=== PATIENT | male | born 1950 | race Caucasian/White ===

== ENCOUNTER 2022-12-09 22:53 | Observation (INO) | payer MEDICARE ==
[2022-12-09] MEDS ORDERED: NITROGLYCERIN SL TABS 0.4 MG TAB SUBLINGUAL STA (23:09)
[2022-12-09] MEDS ORDERED: ASPIRIN 81 MG PO STA (23:09)
[2022-12-09] MEDS ORDERED: NITROGLYCERIN OINT 1 INCH/GM PACKET TOPICAL STA (23:09)
--- NOTE | 2022-12-09 23:18 | ED ---
Chest Pain HPI - General Chief Complaint: Chest Pain Stated Complaint: abd pain Time Seen by Provider: 12/09/22 23:08 Source: patient Mode of arrival: ambulatory Limitations: no limitations - History of Present Illness Initial Comments: This patient is 72-year-old man who presents 7 evaluation for a constellation of symptoms that had come on over the course of the day. The patient noticed initially that he was having some nausea early in the morning. There was also initially substernal discomfort. The patient states that later probably early evening the pain seemed to shift locations to the left of the anterior chest. The patient also complains of having increasing generalized fatigue. The patient had also mentioned to his that he was feeling sweaty at one point. MD Complaint: chest pain -: hour(s) Onset: during rest Pain Location: substernal, left chest Pain Radiation: none Severity: moderate Quality: dull Consistency: constant Improves With: nothing Anginal Symptoms: nausea Treatments Prior to Arrival: other (Antacid) - Related Data Allergies Allergy/AdvReac Type Severity Reaction Status Date / Time No Known Allergies Allergy Verified 12/09/22 23:04 Review of Systems ROS Statement: Those systems with pertinent positive or pertinent negative responses have been documented in the HPI. ROS Other: All systems not noted in ROS Statement are negative. Constitutional: Denies: fever, chills Respiratory: Reports: dyspnea. Denies: cough Cardiovascular: Reports: chest pain. Denies: palpitations Endocrine: Reports: fatigue Gastrointestinal: Reports: nausea. Denies: abdominal pain, vomiting, diarrhea Genitourinary: Denies: dysuria, hematuria Musculoskeletal: Denies: back pain Skin: Denies: rash Neurological: Denies: headache, weakness EKG Findings - EKG Results: EKG: interpreted by HOLLI HOOPER, sinus rhythm (rate 80 bpm), normal axis, normal QRS, normal ST/T - OR, Pacemaker, Normal: Normal tracing: normal tracing Past Medical History Additional Past Medical History / Comment(s): rt shoulder rotator cuff injury History of Any Multi-Drug Resistant Organisms: None Reported Additional Past Surgical History / Comment(s): rt shoulder Past Psychological History: No Psychological Hx Reported Smoking Status: Never smoker Past Alcohol Use History: None Reported Past Drug Use History: None Reported General Exam Limitations: no limitations General appearance: alert, in no apparent distress Head exam: Present: atraumatic, normocephalic Eye exam: Present: normal appearance. Absent: scleral icterus, conjunctival injection Neck exam: Present: normal inspection Respiratory exam: Present: normal lung sounds bilaterally. Absent: respiratory distress, wheezes, rales, rhonchi, stridor Cardiovascular Exam: Present: regular rate, normal rhythm, normal heart sounds. Absent: systolic murmur, diastolic murmur, rubs, gallop GI/Abdominal exam: Present: soft. Absent: distended, tenderness, guarding, rebound, rigid, mass Extremities exam: Present: normal inspection, normal capillary refill. Absent: pedal edema, calf tenderness Back exam: Present: normal inspection. Absent: CVA tenderness (R), CVA tenderness (L) Neurological exam: Present: alert Skin exam: Present: warm, dry, intact, normal color. Absent: rash Course Vital Signs 12/09/22 12/09/22 12/10/22 23:01 23:41 00:35 Temperature 98.4 F Pulse Rate 80 78 75 Respiratory 20 18 18 Rate Blood Pressure 166/109 147/103 125/81 O2 Sat by Pulse 97 97 94 L Oximetry 12/10/22 12/10/22 01:11 03:02 Temperature Pulse Rate 70 68 Respiratory 16 16 Rate Blood Pressure 118/71 106/58 O2 Sat by Pulse 92 L 95 Oximetry Chest Pain [facility] Patient is 72-year-old man presenting with chest pain. Also did have some anginal type symptoms over the course of the day. When the patient for serial cardiac enzymes cardiology consultation and telemetry monitoring. Disposition Clinical Impression: Chest pain Disposition: ADMITTED IP TO THIS HOSP Condition: Good Is patient prescribed a controlled substance at d/c from ED?: No
[2022-12-09 23:40] LABS: Basophils % (A) 0 %; Eosinophils # (A) 0.2 k/uL (0-0.7); Eosinophils % (A) 1 %; HCT 41.9 % (39.0-53.0); HGB 14.3 gm/dL (13.0-17.5); Lymphocytes # (A) 0.6 k/uL (1.0-4.8); Lymphocytes % (A) 4 %; MCH 31.8 pg (25.0-35.0); MCV 93.6 fL (80.0-100.0); Mean Platelet Volume 7.5; Monocytes # (A) 0.7 k/uL (0-1.0); Monocytes % (A) 5 %; Neutrophils # (A) 12.5 k/uL (1.3-7.7); Neutrophils % (A) 89 %; Platelet Count 163 k/uL (150-450); RBC 4.48 m/uL (4.30-5.90); RDW 12.7 % (11.5-15.5); WBC 14.1 k/uL (3.8-10.6)
[2022-12-09 23:52] LABS: Albumin 4.4 g/dL (3.5-5.0); Calcium 9.4 mg/dL (8.4-10.2); Magnesium 2.1 mg/dL (1.6-2.3); Potassium 3.7 mmol/L (3.5-5.1); Total Bilirubin 0.9 mg/dL (0.2-1.3); Total Protein 7.1 g/dL (6.3-8.2)
--- NOTE | 2022-12-09 23:52 | XR ---
EXAMINATION TYPE: XR chest 2V DATE OF EXAM: 12/09/2022 11:48 PM COMPARISON: None TECHNIQUE: XR chest 2V Frontal and lateral views of the chest. CLINICAL INDICATION:Male, 72 years old with history of Chest Pain; FINDINGS: Lungs/Pleura: There is no evidence of pleural effusion, focal consolidation, or pneumothorax. Pulmonary vascularity: Unremarkable. Heart/mediastinum: Cardiomediastinal silhouette is unremarkable. Musculoskeletal: No acute osseous pathology. 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 IMPRESSION: No acute cardiopulmonary disease/process.
[2022-12-09 23:56] LABS: INR 0.9 (<1.2); Partial Thromboplastin Time 23.5 sec (22.0-30.0); Prothrombin Time 9.7 sec (9.0-12.0)
[2022-12-10] MEDS ORDERED: NITROGLYCERIN SL TABS 0.4 MG TAB SUBLINGUAL PRN (02:58)
[2022-12-10] MEDS ORDERED: MELATONIN 5 MG TABLET PO STA (04:21)
[2022-12-10] MEDS ORDERED: TEMAZEPAM 15 MG CAP PO STA (04:21)
[2022-12-10] MEDS ORDERED: TEMAZEPAM 7.5 MG CAP PO STA (04:30)
[2022-12-10 07:41] VITALS: RESP 18
--- NOTE | 2022-12-10 08:46 | CONS ---
CONSULTATION CHIEF COMPLAINT: Chest pain. HISTORY OF PRESENT ILLNESS: Tigre is a 72-year-old gentleman with no significant past medical history, who is following quite a bit of physical exertion yesterday, initially developed right infrascapular discomfort that he thought was musculoskeletal. He subsequently felt somewhat uncomfortable, tired and fatigued most of the day and then subsequently has had what he describes as a heartburn-like sensation in the precordial area. It was mild to moderate in intensity. He could not become comfortable doing anything, arrived in the emergency room where he received aspirin and sublingual nitroglycerin following which he became symptom-free and has remained symptom free since. His hemoglobin is normal at 14.3, potassium is 3.7, creatinine is 1. He has had 2 sets of troponins that are both within normal limits. Rest of his lab work is benign and unremarkable. An EKG shows sinus rhythm and is within normal limits. The patient does not have any prior medical history. He is not on any prescription medications. There is no history of coronary artery disease or congestive heart failure. He is a nonsmoker. There is no strong family history of premature coronary artery disease. PAST MEDICAL HISTORY: Unremarkable. MEDICATIONS: None. ALLERGIES: None. FAMILY HISTORY: Negative for premature coronary artery disease. SOCIAL HISTORY: Negative for smoking, EtOH abuse or drug abuse. REVIEW OF SYSTEMS: A review of systems has been performed. Pertinents are as documented. PHYSICAL EXAMINATION: GENERAL: He is comfortable at rest. VITAL SIGNS: Stable. NECK: There is no jugular venous distention. Carotid upstroke is normal. There is no bruit. CHEST: Reveals good air entry bilaterally. HEART: Reveals first and second heart sounds. No gallop. No murmur. No rub. ABDOMEN: Soft, nontender. EXTREMITIES: Examination of extremities did not reveal any edema. Peripheral pulses are felt. LABORATORY DATA: labs showed that the troponins are negative. ASSESSMENT: Chest pain, rule out coronary artery disease. PLAN: I talked to the patient about symptomatology and treatment options. I advised him to undergo cardiac catheterization for further evaluation. Understanding risks, benefits, he wished to proceed with a stress test and if the stress test is abnormal, consider cardiac cath. I will schedule him for a stress Cardiolite study today. I will also obtain a 2D echo and then decide on further course of action based on these findings. MMODL / IJN: [id number] /
[2022-12-10] MEDS ORDERED: DICLOFENAC SODIUM GEL 100 GM TUBE TOPICAL PRN (09:11)
--- NOTE | 2022-12-10 11:03 | CA ---
Exercise Stress Test Report Name: Tigre Sears Exam Date: 12/10/2022 09:45 Exam Location: [place] Stress Ht (in): 68 Wt (lb): 180 BSA: 1.95 Ordering Phys: Hemanth Nickerson MD Referring Phys: PAMELLA, Technologist: Lucio Turner Age: 72 Gender: M : 1950 Procedure CPT: Indications: Reflex order-Stress test ICD-10 Codes: Patient History: CHEST PAIN Medications: Meds past 24 hrs: Pretest Chest Pain: STRESS TEST Thomas Protocol Exercise Duration (min:sec): 08:[address] Depressions (mm): Angina Score: Rivers Score: Resting HR (bpm): 75 Peak HR (bpm): 131 Resting BP (mmHg): 134 / 84 Peak BP (mmHg): 216 / 92 MPHR: 149 Target HR: 127 % MPHR: 88 METS: 10.3 Total Dose: Peak Dose: Atropine: Double Product: 58764 BP Response: Stress Termination: MAX EXERTION/TARGET HR Stress Symptoms: NO SYMPTOMS Stress Summary: ECG ANALYSIS Resting ECG: Normal sinus rhythm normal lites normal intervals Stress ECG: Patient was given intravenous Lexiscan as a protocol did not have chest pain or diagnostic ST segment depression CONCLUSIONS Negative stress test by EKG criteria Cardiolite portion of the stress test will be reported separately Dr. Remington Son MD (Electronically Signed) Final Date: 10 December 2022 11:02
--- NOTE | 2022-12-10 11:05 | CA ---
Transthoracic Echo Report Name: Tigre Sears Age: 72 Gender: M : 1950 Exam Date: 12/10/2022 08:21 Exam Location: [facility] Ht (in): 68 Wt (lb): 180 Ordering Physician: Hemanth Nickerson MD Attending/Referring Phys: Clinical Research Coordinator Joan Collins RDCS Procedure CPT: Indications: Chest Pain Cardiac Hx: Technical Quality: Fair Contrast 1: Total Dose (mL): Contrast 2: Total Dose (mL): MEASUREMENTS (Male / Female) Normal Values 2D ECHO LV Diastolic Diameter PLAX 4.5 cm 4.2 - 5.9 / 3.9 - 5.3 cm LV Systolic Diameter PLAX 3.2 cm IVS Diastolic Thickness 1.3 cm 0.6 - 1.0 / 0.6 - 0.9 cm LVPW Diastolic Thickness 1.4 cm 0.6 - 1.0 / 0.6 - 0.9 cm LV Relative Wall Thickness 0.6 RV Internal Dim ED PLAX 3.4 cm LA Volume 72.7 cm??? 18 - 58 / 22 - 52 cm??? M-MODE Aortic Root Diameter MM 3.7 cm LA Systolic Diameter MM 2.9 cm LA Ao Ratio MM 0.8 AV Cusp Separation MM 2.2 cm DOPPLER AV Peak Velocity 146.8 cm/s AV Peak Gradient 8.6 mmHg AV Mean Velocity 113.5 cm/s AV Mean Gradient 5.5 mmHg AV Velocity Time Integral 29.4 cm LVOT Peak Velocity 126.1 cm/s LVOT Peak Gradient 6.4 mmHg LVOT Velocity Time Integral 24.1 cm MV Area PHT 3.1 cm??? Mitral E Point Velocity 59.9 cm/s Mitral A Point Velocity 89.5 cm/s Mitral E to A Ratio 0.7 MV Deceleration Time 247.8 ms MV E' Velocity 5.6 cm/s Mitral E to MV E' Ratio 10.8 TR Peak Velocity 192.8 cm/s TR Peak Gradient 14.9 mmHg Right Ventricular Systolic Press 19.6 mmHg FINDINGS Left Ventricle Mildly increased left ventricular wall thickness. Normal left ventricular systolic function with no obvious regional wall motion abnormalities. Left ventricular cavity size normal. Left ventricular ejection fraction is estimated at 55-60 %. Right Ventricle Normal right ventricular size and function. Right ventricular systolic pressure within normal limits. Right Atrium Normal right atrial size. Left Atrium Moderately increased left atrial volume. Mildly increased left atrial area. Mitral Valve Structurally normal mitral valve. [id number] mitral regurgitation. Aortic Valve Trileaflet aortic valve. No aortic stenosis. No aortic regurgitation. Diffuse thickening (sclerosis) of the aortic valve cusps without reduced excursion. Tricuspid Valve Structurally normal tricuspid valve. Mild tricuspid regurgitation. Pulmonic Valve Trace pulmonic regurgitation. Pericardium No pericardial effusion. Aorta Normal size aortic root and proximal ascending aorta. CONCLUSIONS Normal LV systolic function Left atrial enlargement aortic sclerosis without significant stenosis Previewed by: Dr. Remington Son MD (Electronically Signed) Final Date: 10 December 2022 11:04
--- NOTE | 2022-12-10 11:17 | NM ---
EXAMINATION TYPE: NM stress cardiolite complete DATE OF EXAM: 12/10/2022 COMPARISON: NONE CLINICAL INDICATION: Male, 72 years old with history of chest pain; TECHNIQUE: After the intravenous administration of 10.2 mCi Tc 99m Sestamibi - Rest images obtained 75 minutes post injection. The patient exercised using a ELINOR protocol and 1 minute prior to peak exercise was injected with 25.7 mCi Tc 99m Sestamibi - Stress images obtained 15 minutes post injecti on. FINDINGS: Targeted heart rate was achieved during performance of the study. Review of stress and rest SPECT milena ges demonstrates no distinct perfusion abnormality. Gated analysis shows normal wall motion with an estimated left ventricular ejection fraction of 67 %. IMPRESSION: No scintigraphic evidence for reversible ischemia
[2022-12-10 14:11] VITALS: BP 119/76; PULSE 70; TEMP 97
--- NOTE | 2022-12-10 15:06 | P.HPIM ---
History of Present Illness H&P Date: 12/10/22 Chief Complaint: Heartburn This is a pleasant 72-year-old patient who follows with Dr. Maulik Shore. Patient rather good health. Except for some arthritis in the joints. For which she uses Voltaren gel. Yesterday morning patient felt a bit of nausea. When he got up. That had his breakfast and felt better. It to when he was moving some pallets is some pain in the lower back on the right side. They don't patient's was feeling fatigued and tired. Had some heartburn. Had some dinner. Did not feel better. Starting having some chills and felt hot. Some abdominal discomfort. Decided to come to the hospital to rule out a cardiac cause. No prior cardiac history. Fairly active. No diarrhea. No urinary symptoms. Review of systems: GEN.: Tired EYES: None HEENT: None NECK: None RESPIRATORY: None CARDIOVASCULAR: As above GASTROINTESTINAL: As above GENITOURINARY: None MUSCULOSKELETAL: Shoulder and knee pain LYMPHATICS: None HEMATOLOGICAL: None PSYCHIATRY: None NEUROLOGICAL: None Past medical history to include: Arthritis in the shoulder and knees Social history: . Retired from automotive. No smoking or alcohol Physical examination: VITAL SIGNS: 98.4, 80, 20, 166/109, 97% room air upon presentation GENERAL: BMI 27.4, declining a bit of a comfortable. EYES: Pupils equal. Conjunctiva normal. HEENT: External appearance of nose and ears normal, oral cavity grossly normal. NECK: JVD not raised; masses not palpable. HEART: First and second heart sounds are normal; no edema. LUNGS: Respiratory rate normal; clear to auscultation. ABDOMEN: Soft, nontender, liver spleen not palpable, no masses palpable. PSYCH: Alert and oriented x3; mood and affect normal. MUSCULOSKELETAL:No Clubbing/cyanosis;muscles-grossly intact. OA NEUROLOGICAL: Cranial nerves grossly intact; no facial asymmetry, power and sensation grossly intact. LYMPHATICS: No lymph nodes palpable in the axilla and neck INVESTIGATIONS, reviewed in the clinical context: White count 14.1 hemoglobin 14.3 platelets 1623 sodium 136 potassium 3.7 BUN 29 creatinine 1.03 Troponin I 3 negative Influenza type A, type B, RSV, COVID-19: Not detected EKG tracing personally reviewed by wy-normal sinus rhythm. Rate 80 Chest x-ray film personally reviewed by me-unremarkable 2-D echocardiogram: EF 55-60%. Mild to moderate MR. Assessment and plan: -Patient present nonspecific chest pain. Tired. Rule out cardiac cause. Troponin negative. Cardiology consulted. Stress test ordered -Patient also has some nausea. Some leukocytosis. Could be a low-grade bladder infection. Currently no fever no chills. Follow clinically -Primary osteoarthritis Voltaren gel when necessary -Mild to moderate MR Follow with cardiology Care was discussed with the patient. Stress test per cardiology. Past Medical History Additional Past Medical History / Comment(s): rt shoulder rotator cuff injury History of Any Multi-Drug Resistant Organisms: None Reported Additional Past Surgical History / Comment(s): rt shoulder Past Psychological History: No Psychological Hx Reported Smoking Status: Never smoker Past Alcohol Use History: None Reported Past Drug Use History: None Reported Medications and Allergies Home Medications Medication Instructions Recorded Confirmed Type Diclofenac Sodium [Voltaren 2 - 4 gm TOPICAL QID PRN 12/10/22 12/10/22 History Arthritis Pain 1% Gel] Allergies Allergy/AdvReac Type Severity Reaction Status Date / Time No Known Allergies Allergy Verified 12/10/22 08:51 Physical Exam Vitals: Vital Signs Temp Pulse Resp BP Pulse Ox 12/10/22 07:38 66 18 93/62 96 12/10/22 03:02 68 16 106/58 95 12/10/22 01:11 70 16 118/71 92 L 12/10/22 00:35 75 18 125/81 94 L 12/09/22 23:41 78 18 147/103 97 12/09/22 23:01 98.4 F 80 20 166/109 97 Intake and Output 12/09/22 12/10/22 12/10/22 22:59 06:59 14:59 Other: Weight 81.647 kg Results CBC & Chem 7: 12/09/22 23:28 12/09/22 23:28 Labs: Abnormal Lab Results - Last 24 Hours (Table) 12/09/22 12/09/22 Range/Units 23:28 23:28 WBC 14.1 H (3.8-10.6) k/uL Neutrophils # 12.5 H (1.3-7.7) k/uL Lymphocytes # 0.6 L (1.0-4.8) k/uL Sodium 136 L (137-145) mmol/L Carbon Dioxide 20 L (22-30) mmol/L BUN 29 H (9-20) mg/dL Glucose 112 H (74-99) mg/dL Amylase 111 H (30-110) U/L
--- NOTE | 2022-12-10 16:29 | P.DS ---
Providers Date of admission: 12/10/22 02:58 Expected date of discharge: 12/10/22 Attending physician: Hemanth Nickerson Consults: 12/10/22 02:58 Consult Physician Routine Consulting Provider: Jaspreet Garrison Consult Reason/Comments: chest pain Do you want consulting provider notified?: Yes Primary care physician: Maulik Shore MD Hospital Course: Chief Complaint: Heartburn This is a pleasant 72-year-old patient who follows with Dr. Maulik Shore. Patient rather good health. Except for some arthritis in the joints. For which she uses Voltaren gel. Yesterday morning patient felt a bit of nausea. When he got up. That had his breakfast and felt better. It to when he was moving some pallets is some pain in the lower back on the right side. They don't patient's was feeling fatigued and tired. Had some heartburn. Had some dinner. Did not feel better. Starting having some chills and felt hot. Some abdominal discomfort. Decided to come to the hospital to rule out a cardiac cause. No prior cardiac history. Fairly active. No diarrhea. No urinary symptoms. Troponins were negative. Stress Cardiolite negative. Possibly underlying acute viral GI infection. 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 EYES: Pupils equal. Conjunctiva normal. HEENT: External appearance of nose and ears normal, oral cavity grossly normal. NECK: JVD not raised; masses not palpable. HEART: First and second heart sounds are normal; no edema. LUNGS: Respiratory rate normal; clear to auscultation. ABDOMEN: Soft, nontender, liver spleen not palpable, no masses palpable. PSYCH: Alert and oriented x3; mood and affect normal. MUSCULOSKELETAL:No Clubbing/cyanosis;muscles-grossly intact. OA NEUROLOGICAL: Cranial nerves grossly intact; no facial asymmetry, power and sensation grossly intact. LYMPHATICS: No lymph nodes palpable in the axilla and neck INVESTIGATIONS, reviewed in the clinical context: Cardiolite stress test: Negative White count 14.1 hemoglobin 14.3 platelets 1623 sodium 136 potassium 3.7 BUN 29 creatinine 1.03 Troponin I 3 negative Influenza type A, type B, RSV, COVID-19: Not detected EKG tracing personally reviewed by me-normal sinus rhythm. Rate 80 Chest x-ray film personally reviewed by me-unremarkable 2-D echocardiogram: EF 55-60%. Mild to moderate MR. Assessment and plan: -Patient present nonspecific chest pain. Tired. Troponin negative. Cardiolite stress test-negative -Probably low-grade viral GI infection. -Primary osteoarthritis Voltaren gel when necessary -Mild to moderate MR Follow with cardiology Disposition: Home Plan - Discharge Summary New Discharge Prescriptions: Continue Diclofenac Sodium [Voltaren Arthritis Pain 1% Gel] 2 - 4 gm TOPICAL QID PRN PRN Reason: Pain Discharge Medication List Diclofenac Sodium [Voltaren Arthritis Pain 1% Gel] 2 - 4 gm TOPICAL QID PRN 12/10/22 [History] Follow up Appointment(s)/Referral(s): Maulik Shore MD [Primary Care Provider] - 1-2 days Remington Son MD [STAFF PHYSICIAN] - 01/20/23 3:30 pm Patient Instructions/Handouts: Chest Pain (ED) Discharge Disposition: HOME SELF-CARE
[2022-12-11] MEDS ORDERED: ASPIRIN 325 MG TAB PO SCH (09:00)
== END 2022-12-10 14:34 | disposition home or self-care (01) ==
LOC: EC 22:53 → 6NMEDSUR 12-10 02:58
PROVIDERS: ADMIT Hospitalist; ATTEND Hospitalist
DX: R07.89 Other chest pain (principal); R11.0 Nausea; M54.50 Low back pain, unspecified; R12 Heartburn; R53.83 Other fatigue; R68.83 Chills (without fever); D72.829 Elevated white blood cell count, unspecified; M19.011 Primary osteoarthritis, right shoulder; M17.0 Bilateral primary osteoarthritis of knee; I08.0 Rheumatic disorders of both mitral and aortic valves; Z20.822 Contact with and (suspected) exposure to COVID-19; Z87.828 Personal history of other (healed) physical injury and trauma; Z98.890 Other specified postprocedural states
CPT/HCPCS: 99285; 36415; 93005; 93017; 93306; 85379; 83880; 80053; 82150; 83690; 83735; 84484 ×2; 85025; 85610; 85730; 87636; 71046; 78452; G0378; A9500

== ENCOUNTER 2024-07-03 21:11 | Emergency (ER) | payer MEDICARE ==
[2024-07-03 21:17] VITALS: BP 168/99; PULSE 77; RESP 18; TEMP 97.9
--- NOTE | 2024-07-03 22:03 | ED ---
Recheck HPI - General Chief Complaint: Skin/Abscess/Foreign Body Stated Complaint: Rash, Reaction to Medication Time Seen by Provider: 07/03/24 21:26 Source: patient, RN notes reviewed, old records reviewed Mode of arrival: ambulatory Limitations: no limitations - History of Present Illness Initial Comments: This is a 73-year-old male to the ER for evaluation today. Patient presents for evaluation of foot rash, he has seen dermatology and placed on antifungal cream with some improvement over the last week, patient is running out of medication unable to get into see dermatology secondary to holiday and concern for possible worsening symptoms of itchiness and redness spreading. Patient has no other symptoms and no other complaints, no underlying history of diabetes, denies any ulcers or bleeding MD Complaint: wound re-check, medication refill request -: week(s) Returns Today for: request for prescription Symptoms Since Prior Visit: worsening redness Associated Symptoms: none Treatments Prior to Arrival: home treatments, other (Patient on antifungal cream) - Related Data Home Medications Medication Instructions Recorded Confirmed Diclofenac Sodium [Voltaren 2 - 4 gm TOPICAL QID PRN 12/10/22 12/10/22 Arthritis Pain 1% Gel] Allergies Allergy/AdvReac Type Severity Reaction Status Date / Time No Known Allergies Allergy Verified 07/03/24 21:17 Review of Systems ROS Statement: Those systems with pertinent positive or pertinent negative responses have been documented in the HPI. ROS Other: All systems not noted in ROS Statement are negative. Past Medical History Additional Past Medical History / Comment(s): rt shoulder rotator cuff injury History of Any Multi-Drug Resistant Organisms: None Reported Additional Past Surgical History / Comment(s): rt shoulder Past Psychological History: No Psychological Hx Reported Smoking Status: Never smoker Past Alcohol Use History: None Reported Past Drug Use History: None Reported General Exam - General Exam Comments Initial Comments: Patient does have what appears to be tinea rash both feet and between toes and to the heel of the left foot Limitations: no limitations General appearance: alert, in no apparent distress Head exam: Present: atraumatic, normocephalic, normal inspection Eye exam: Present: normal appearance, PERRL, EOMI. Absent: scleral icterus, conjunctival injection, periorbital swelling ENT exam: Present: normal exam, mucous membranes moist Neck exam: Present: normal inspection. Absent: tenderness, meningismus, lymphadenopathy Respiratory exam: Present: normal lung sounds bilaterally. Absent: respiratory distress, wheezes, rales, rhonchi, stridor Cardiovascular Exam: Present: regular rate, normal rhythm, normal heart sounds. Absent: systolic murmur, diastolic murmur, rubs, gallop, clicks GI/Abdominal exam: Present: soft, normal bowel sounds. Absent: distended, tenderness, guarding, rebound, rigid Extremities exam: Present: normal inspection, full ROM, normal capillary refill. Absent: tenderness, pedal edema, joint swelling, calf tenderness Back exam: Present: normal inspection Neurological exam: Present: alert, oriented X3, CN II-XII intact Psychiatric exam: Present: normal affect, normal mood Skin exam: Present: warm, dry, intact, normal color. Absent: rash Course Vital Signs 07/03/24 21:12 Temperature 97.9 F Pulse Rate 77 Respiratory 18 Rate Blood Pressure 168/99 O2 Sat by Pulse 96 Oximetry - Reevaluation(s) Reevaluation #1: 07/03/24 22:01 Records reviewed Reevaluation #2: 07/03/24 22:01 Patient symptoms are unchanged Reevaluation #3: 07/03/24 22:01 Patient informed of results questions answered Reevaluation #4: Was pt. sent in by a medical professional or institution (, PA, TELETYPE TECHNICIAN, urgent care, hospital, or usp...) When possible be specific @ -no Did you speak to anyone other than the patient for history (EMS, parent, family, police, friend...)? What history was obtained from this source @ -no Did you review nursing and triage notes (agree or disagree)? Why? @ -agree Are old charts reviewed (outside hosp., previous admission, EMS record, old EKG, old radiological studies, urgent care reports/EKG's, usp records)? Report findings @ -yes Differential Diagnosis (chest pain, altered mental status, abdominal pain women, abdominal pain men, vaginal bleeding, weakness, fever, dyspnea, syncope, headache, dizziness, GI bleed, back pain, seizure, CVA, palpatations, mental health, musculoskeletal)? @ -prior EKG interpreted by me (3pts min.). @ -yes X-rays interpreted by me (1pt min.). @ -yes negative for acute disease CT interpreted by me (1pt min.). @ -no U/S interpreted by me (1pt. min.). @ -no What testing was considered but not performed or refused? (CT, X-rays, U/S, labs)? Why? @ -none What meds were considered but not given or refused? Why? @ -none Did you discuss the management of the patient with other professionals (professionals i.e. DrYael, PA, TELETYPE TECHNICIAN, lab, RT, psych nurse, psychiatric social worker, metal spinner, teacher, business practices officer, piano case maker)? Give summary @ -no Was smoking cessation discussed for >3mins.? @ -no Was critical care preformed (if so, how long)? @ -no Were there social determinants of health that impacted care today? How? (Homelessness, low income, unemployed, alcoholism, drug addiction, transportation, low edu. Level, literacy, decrease access to med. care, snf, rehab)? @ -none Was there de-escalation of care discussed even if they declined (Discuss DNR or withdrawal of care, Hospice)? DNR status @ -no What co-morbidities impacted this encounter? (DM, HTN, Smoking, COPD, CAD, Cancer, CVA, ARF, Chemo, Hep., AIDS, mental health diagnosis, sleep apnea, morbid obesity)? @ -none Was patient admitted / discharged? Hospital course, mention meds given and route, prescriptions, significant lab abnormalities, going to OR and other pertinent info. @ - Undiagnosed new problem with uncertain prognosis? @ -no Drug Therapy requiring intensive monitoring for toxicity (Heparin, Nitro, Insulin, Cardizem)? @ -no Were any procedures done? @ -no Diagnosis/symptom? @ - Acute, or Chronic, or Acute on Chronic? @ -Acute Uncomplicated (without systemic symptoms) or Complicated (systemic symptoms)? @ -Complicated Side effects of treatment? @ -no Exacerbation, Progression, or Severe Exacerbation? @ -exacerbation Poses a threat to life or bodily function? How? (Chest pain, [place], NH, pneumonia, PE, COPD, DKA, ARF, appy, cholecystitis, CVA, Diverticulitis, Homicidal, Suicidal, threat to staff... and all critical care pts) @ -yes Medical Decision Making - Medical Decision Making 73 male to ER for reevaluation of rash, bilateral foot rash in between toes does appear to be fungal in origin, has seen dermatology will continue follow-up with dermatology regarding treatment, patient informed of timeline and can be discharged Disposition Clinical Impression: Tinea pedis of both feet Disposition: HOME SELF-CARE Condition: Good Instructions (If sedation given, give patient instructions): Athlete's Foot (ED), Skin Yeast Infection (ED) Is patient prescribed a controlled substance at d/c from ED?: No Referrals: Denys Dan MD [Primary Care Provider] - 1-2 days Time of Disposition: 22:00
[2024-07-03] MEDS: CLOTRIMAZOLE 1% CREAM 30 GM TUBE TOPICAL STA (22:10)
[2024-07-03] MEDS: NYSTATIN 100,000 UNIT/GM POWD 15 GM TOPICAL STA (22:11)
== END 2024-07-03 22:11 | disposition home or self-care (01) ==
LOC: EC 21:11
DX: B35.3 Tinea pedis (principal)
CPT/HCPCS: 99282